=== PATIENT | male | born 1935 | race Caucasian/White ===

== ENCOUNTER 2016-11-24 09:21 | Inpatient (IN) | payer MEDICARE ==
[2016-11-24] MEDS ORDERED: Acetaminophen 325 MG TAB PO PRN (21:22)
[2016-11-24] MEDS ORDERED: Loperamide HCl 2 MG CAP PO PRN (21:43)
[2016-11-24] MEDS ORDERED: Bisacodyl 5 MG TAB PO PRN (21:43)
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
[2016-11-25] MEDS ORDERED: Levothyroxine Sodium 100 MCG TAB PO SCH ×2 (06:00→09:22)
[2016-11-25 06:17] LABS: Hemoglobin A1c 8.1 % (4.0-6.0)
[2016-11-25 06:19] LABS: ALT (SGPT) 40 U/L (8-55); AST (SGOT) 34 U/L (5-34); Alkaline Phosphatase 149 U/L (40-150); Anion Gap 14 mmol/L (10-20); BUN (Urea Nitrogen) 27 mg/dL (8.4-25.7); Bilirubin, Total 0.8 mg/dL (0.2-1.2); Calc. Creatinine Clearance 38 mL/min (70-130); Calcium 8.8 mg/dL (7.8-10.44); Carbon Dioxide 25 mmol/L (23-31); Cardiac Risk 4.3 (Less than 4.5); Chloride 96 mmol/L (98-107); Cholesterol 167 mg/dl (< 200 Desired); Estimated GFR-MDRD 33; Globulin 3.8 g/dL (2.4-3.5); Glucose 150 mg/dL (83-110); HDL Cholesterol 39 mg/dL (>60 Neg Risk); LDL Cholesterol, Calculated 65 mg/dL; Potassium 4.2 mmol/L (3.5-5.1); Protein, Total 6.8 g/dL (5.8-8.1); Sodium 131 mmol/L (136-145); Triglycerides 314 mg/dL (Less than 150)
[2016-11-25 06:30] LABS: #Basophils 0.1 thou/uL (0.0-0.2); #Eosinphils 0.2 thou/uL (0.0-0.7); #Lymphocytes 2.1 thou/uL (1.20-3.40); #Monocytes 0.7 thou/uL (0.11-0.59); #Neutrophils 6.1 thou/uL (1.40-6.50); %Eosinophils 2.5 % (0.0-10.0); %Lymphocytes 22.9 % (21.0-51.0); %Monocytes 7.3 % (0.0-10.0); %Neutrophils 66.4 % (42.0-75.0); Hemoglobin 10.6 g/dL (14.0-18.0); Mean Corpuscular HGB CONC 32.8 g/dL (32.0-36.0); Mean Corpuscular Hemoglobin 29.7 pg (27.0-31.0); Mean Corpuscular Volume 90.5 fl (80.0-94.0); Platelet Count 280 thou/uL (130-400); RBC Distribution Width 13.5 % (11.5-14.5); Red Blood Cell (RBC) Count 3.57 mill/uL (4.70-6.10); White Blood Cell (WBC) Count 9.2 thou/uL (4.8-10.8)
[2016-11-25] MEDS: Hydrochlorothiazide 25 MG TAB PO SCH ×2 (08:28→21:04)
[2016-11-25] MEDS: Bisoprolol Fumarate 5 MG TAB PO SCH (08:32)
[2016-11-25] MEDS: Apixaban 5 MG TAB PO SCH ×2 (08:32→21:01)
[2016-11-25] MEDS: Famotidine 20 MG TAB PO SCH ×2 (08:32→21:02)
[2016-11-25] MEDS: Gabapentin 100 MG CAP PO SCH ×3 (08:32→21:03)
[2016-11-25] MEDS: cloNIDine HCl 0.1 MG TAB PO SCH ×2 (08:32→21:01)
[2016-11-25 08:41] LABS: Clarity Slightly Cloudy (Clear); Leukocyte Negative (Negative); Nitrite Negative (Negative)
[2016-11-25 08:42] LABS: Bacteria/HPF 1+ HPF (None Seen); Bilirubin Negative (Negative); Blood, Urine Large (Negative); Glucose, Urine (Dipstick) Negative (Negative); Protein, Urine (Dipstick) 30 mg/dL (Neg-Trace); RBC/HPF 0-3 HPF (0-3); Squamous Epithelial 0-3 HPF (0-3); Urobilinogen 0.2 mg/dL (0.2-1.0); WBC/HPF 0-3 HPF (0-3)
[2016-11-25 08:44] LABS: Crystals/HPF 2+ AMORPH URATES HPF (Negative)
[2016-11-25] MEDS ORDERED: Sodium Chloride Irrig Solution 250 ML BOT ONE (09:00)
--- NOTE | 2016-11-25 12:18 | PRG ---
DATE OF SERVICE: 11/25/2016 SUBJECTIVE: Patient said he is alright this morning. He had just a little bit of a restless night. Nurses report no problems. He did find to have a saline lock in the right arm that they will vinicio ve, since he is not receiving any medications through the site. OBJECTIVE: GENERAL: The patient is alert, talkative, appears comfortable in no distress. VITAL SIGNS: His vital signs shows a temperature of 97.6, pulse 82, respirations 18, O2 sat 94% on 2 liters, blood pressure 168/68, earlier 134/68. His admission weight was 201. LUNGS: His lungs a re clear. HEART: Heart has a regular rate. ABDOMEN: His abdomen is soft, nontender. Patient has an ileostomy in the right lower quadrant that has moderate amount of brown liquid drainage. The incision dressing is clean. EXTREMITIES: No edema. LABORATORY AND X-RAY FINDINGS: His electrocardiogram showed a sinus rhythm with a rate of 77. Shani ent has evidence of a right bundle branch block. There were some TIA abnormalities in the inferior leads. His lab work shows an H\T\H of 10.6 and 32.3 with a white blood cell count of 9200 with 66% segs, 23% lymphocytes, and a platelet count of 280,000. Sodium is 131, potassium 4.2. His BUN is 2 7, creatinine 1.97 with a GFR of 33, which is stable. His FBS is 150, hemoglobin A1c is 8.1. His t otal bilirubin 0.8, AST 34, ALT 40, serum albumin is 3. Cholesterol 167, triglycerides 314, LDL 65, HDL 39, TSH is 7.4. ASSESSMENT: 1. Severe weakness and gait abnormality. Patient was independent with his ADLs prior to the hospit alization on 10/13/2016. The severe weakness is secondary to the prolonged hospitalization and surg [place] for the ischemic bowel disease with gangrenous changes requiring bowel resection and ileostomy a nd his wound complication and other comorbidities. 2. Diabetes type 2, insulin requiring. A. Complicated by peripheral neuropathy of the lower extremities. B. Hemoglobin A1c was 8.1 and FBS today was 150. 3. Atrial fibrillation, paroxysmal. A. Rate controlled. B. On anticoagulants with Eliquis. C. Complicated by embolus to the bowel. D. Presently in sinus rhythm as of 11/25/2016. 4. Ischemic bowel disease, a probable mesenteric emboli resulting gangrenous changes to small bowel and some to the large for which he underwent resection and a small bowel and ileostomy on 7. A. Complicated by opening of the wound that is healing by the secondary intention. B. Care for wet to dry dressing. 5. Episode of hypotension and cardiac arrest for which he was resuscitated and approximately is 5th postop day. 6. Anemia secondary to his recent surgeries. A. Status post transfusion. B. Hemoglobin 10.6 as of 11/25/2016. 7. History of recent cerebrovascular accident, suspect embolic. A. Leaving patient with a very mild right-sided weakness. 8. Hypothyroidism. A. TSH elevated to 7.4. 9. Dementia of recent onset. 10. Chronic kidney disease stage 3. A. Stable with GFR of 33. PLAN: I will continue present wound care with wet to dry dressings to the abdominal wound. Physica l therapy will be seen the patient today as well occupational therapy and speech therapy at some poi nt, we will see him. We will continue present medicines. We will increase his levothyroxine to 112 mcg daily and to follow up TSH in 8 weeks. Continue his Eliquis.
[2016-11-25] MEDS ORDERED: Dextrose 5% in Water 1,000 ML IV PRN (20:59)
[2016-11-25] MEDS ORDERED: Dextrose 50% Abboject 50 ML SYRINGE IVP PRN (20:59)
[2016-11-25] MEDS ORDERED: Non-Formulary Item 1 EACH (Insulin Glargine,Hum.Rec.Anlog [Lantus Solostar] 20 UNIT) SQ SCH (21:00)
[2016-11-25] MEDS: Levemir Flexpen 100 UNITS/ML PEN SC SCH (21:05)
[2016-11-26] MEDS: Levothyroxine Sodium 112 MCG TAB PO SCH (05:10)
[2016-11-26 05:49] LABS: #Basophils 0.1 thou/uL (0.0-0.2); #Eosinphils 0.3 thou/uL (0.0-0.7); #Lymphocytes 1.9 thou/uL (1.20-3.40); #Monocytes 0.6 thou/uL (0.11-0.59); %Basophils 0.9 % (0.0-1.0); %Eosinophils 3.3 % (0.0-10.0); %Lymphocytes 24.2 % (21.0-51.0); %Monocytes 7.5 % (0.0-10.0); %Neutrophils 64.1 % (42.0-75.0); Hemoglobin 10.6 g/dL (14.0-18.0); Mean Corpuscular HGB CONC 33.9 g/dL (32.0-36.0); Mean Corpuscular Hemoglobin 30.3 pg (27.0-31.0); Mean Corpuscular Volume 89.4 fl (80.0-94.0); Mean Platelet Volume 5.9 fL (7.4-10.4); Platelet Count 269 thou/uL (130-400); RBC Distribution Width 13.6 % (11.5-14.5); Red Blood Cell (RBC) Count 3.51 mill/uL (4.70-6.10); White Blood Cell (WBC) Count 7.8 thou/uL (4.8-10.8)
[2016-11-26 05:59] LABS: Anion Gap 15 mmol/L (10-20); BUN (Urea Nitrogen) 30 mg/dL (8.4-25.7); Calc. Creatinine Clearance 36 mL/min (70-130); Calcium 9.1 mg/dL (7.8-10.44); Carbon Dioxide 26 mmol/L (23-31); Chloride 94 mmol/L (98-107); Estimated GFR-MDRD 31; Glucose 98 mg/dL (83-110); Potassium 4.1 mmol/L (3.5-5.1); Sodium 131 mmol/L (136-145)
[2016-11-26] MEDS: Bisoprolol Fumarate 5 MG TAB PO SCH (08:25)
[2016-11-26] MEDS: Famotidine 20 MG TAB PO SCH ×2 (08:25→20:48)
[2016-11-26] MEDS: cloNIDine HCl 0.1 MG TAB PO SCH ×2 (08:25→20:48)
[2016-11-26] MEDS: Apixaban 5 MG TAB PO SCH ×2 (08:25→20:48)
[2016-11-26] MEDS: Gabapentin 100 MG CAP PO SCH ×3 (08:26→20:48)
--- NOTE | 2016-11-26 08:51 | PRG ---
DATE OF SERVICE: 11/26/2016 The patient said he was a little restless last night, but feels okay this morning. Nurses report no problem with patient. OBJECTIVE: The patient lying in bed, alert, appears comfortable, in no distress. His vital signs show a temperature of 98, pulse 54, respirations 20, O2 saturation 94% on room air, blood pressure w as 120/58. His lungs are clear. Heart, regular rate. Abdomen soft, nontender. Dressing is dry. Extremities; no edema. LABORATORY: H\T\H is 10.6 and 31.4. White cell count 7800 with 64% segs, 24% lymphocytes, and kirk telet count of 269. Sodium 131, potassium 4.1, BUN 30, creatinine 2, GFR 31, glucose 98. Yesterday 's GFR was 33, BUN 27. ASSESSMENT: 1. Severe weakness and gait abnormality. A. Prior to his initial hospitalization, he was independent of his ADLs. B. Severe weakness now secondary to the prolonged hospitalization following surgery for ischemic/ga ngrenous bowel secondary to mesenteric emboli requiring surgical resection and ileostomy. 2. Diabetes type 2, insulin requiring. A. Complicated by peripheral neuropathy of the lower extremities. B. Hemoglobin A1c 8.1. FBS today is 98. 3. Atrial fibrillation, paroxysmal. A. Rate controlled. B. On anticoagulants was Eliquis. C. Complicated by emboli to the mesentery with ischemic/gangrenous bowel. D. Presently in sinus rhythm. 4. Ischemic/gangrenous bowel secondary to a mesenteric emboli requiring resection of small and some large bowel and an ileostomy 10/13/2016. A. Complicated by open abdominal incision that is healing by secondary intention. B. Has still some necrotic tissue at the base of the wound. C. Being cared for and debrided with wet to dry dressing with gradual improvement. 5. Episode of hypotension and cardiac arrest for which he was resuscitated, approximately his 5th p ostop day 6. Anemia secondary to recent surgery. A. Status post transfusion. B. Hemoglobin 10.6 on 11/26/2016. 7. History of recent cerebrovascular accident, suspect embolic. A. Leaving patient with a mild right-sided weakness. 8. Hypothyroidism. A. TSH elevated to 7.4. B. Levothyroxine yesterday, increased. 9. Chronic kidney disease stage 3. A. GFR has dropped from 30 to 31 with some mild increase in BUN and creatinine. PLAN: 1. Continue present care. Continue wet to dry dressings. 2. Will stop the HCT which may be contributing to the decline in renal function. We will push oral fluids. Also, the ileostomy may contributes to the decline in his renal function. We will recheck his renal function tomorrow. His urinary output was recorded as only 325, stool output was 1400 to sky of 1725.
[2016-11-26] MEDS: Levemir Flexpen 100 UNITS/ML PEN SC SCH (20:48)
[2016-11-27] MEDS: Levothyroxine Sodium 112 MCG TAB PO SCH (05:13)
[2016-11-27 05:36] LABS: #Basophils 0.1 thou/uL (0.0-0.2); #Eosinphils 0.3 thou/uL (0.0-0.7); #Lymphocytes 2.5 thou/uL (1.20-3.40); #Monocytes 0.7 thou/uL (0.11-0.59); #Neutrophils 5.2 thou/uL (1.40-6.50); %Basophils 0.8 % (0.0-1.0); %Eosinophils 3.9 % (0.0-10.0); %Lymphocytes 28.7 % (21.0-51.0); %Monocytes 7.9 % (0.0-10.0); %Neutrophils 58.8 % (42.0-75.0); Hemoglobin 10.7 g/dL (14.0-18.0); Mean Corpuscular HGB CONC 34.9 g/dL (32.0-36.0); Mean Corpuscular Hemoglobin 31.6 pg (27.0-31.0); Mean Corpuscular Volume 90.5 fl (80.0-94.0); Mean Platelet Volume 5.9 fL (7.4-10.4); Platelet Count 265 thou/uL (130-400); RBC Distribution Width 13.8 % (11.5-14.5); White Blood Cell (WBC) Count 8.8 thou/uL (4.8-10.8)
[2016-11-27 05:38] LABS: Anion Gap 19 mmol/L (10-20); BUN (Urea Nitrogen) 37 mg/dL (8.4-25.7); Calc. Creatinine Clearance 26 mL/min (70-130); Calcium 9.3 mg/dL (7.8-10.44); Chloride 94 mmol/L (98-107); Estimated GFR-MDRD 22; Glucose 76 mg/dL (83-110); Sodium 134 mmol/L (136-145)
[2016-11-27 05:41] LABS: Carbon Dioxide 26 mmol/L (23-31)
[2016-11-27] MEDS: Apixaban 5 MG TAB PO SCH ×2 (08:07→21:35)
[2016-11-27] MEDS: cloNIDine HCl 0.1 MG TAB PO SCH ×2 (08:08→21:35)
[2016-11-27] MEDS: Famotidine 20 MG TAB PO SCH ×2 (08:08→21:35)
[2016-11-27] MEDS: Gabapentin 100 MG CAP PO SCH ×3 (08:08→21:35)
[2016-11-27] MEDS: Bisoprolol Fumarate 5 MG TAB PO SCH (08:08)
--- NOTE | 2016-11-27 08:58 | PRG ---
DATE OF SERVICE: 11/27/2016 SUBJECTIVE: The patient had no complaints. Last night the nurse called and said the patient's bloo d pressure has been running a little lower and they had held his hydralazine all day. Hydralazine w as discontinued. Blood pressure continued to be monitored. The patient's catheter was a little unc omfortable, but with repositioning he had no complaints. He has had much better output. OBJECTIVE: The patient is lying in bed. He appears very comfortable. His vital signs show a tempe rature 96.5, pulse 53, respirations 18, O2 sat 94%, blood pressure 111/54. His weight is 199, outpu t 1600 with the stools. Lungs are clear. Heart, regular rate. Abdomen; ileostomy, the patient has a small amount of yellow stools in the bag. Abdomen is soft and nontender. Extremities; there is no edema. Laboratory shows an H\T\H of 10.7 and 30.8, white cell count 8800 with 59% segs, 29% lymphocytes, an d platelet count of 265,000. Sodium 134, potassium 5, BUN 37, creatinine up to 2.8, GFR down to 22. FBS 76. ASSESSMENT: 1. Severe weakness and gait abnormality. A. Prior to his initial hospitalization on 10/13/2016 he was independent of all his ADLs. B. Severe weakness now secondary to his prolonged hospitalization following surgery on 10/13/2016. 2. Diabetes type 2, insulin requiring. A. Complicated by peripheral neuropathy of the lower extremities. B. Hemoglobin A1c is 8.1. FBS today is 76. 3. Atrial fibrillation, paroxysmal. A. Rate controlled. B. On chronic anticoagulation with Eliquis. C. Complicated by emboli to the mesentery with ischemic/gangrenous bowel. D. Presently in sinus rhythm. 4. Ischemic/gangrenous bowel secondary to mesenteric emboli requiring a resection of small and some large bowel and an ileostomy on 10/13/2016. A. complicated by an open abdominal incision that is slowly healing by secondary intention with stil l some necrotic tissue at the base of the wound. 5. Episode of hypotension and cardiac arrest for which he was resuscitated approximately 5th postop day. 6. Anemia secondary to recent surgery. A. Status post transfusion. B. Hemoglobin 10.7. 7. History of recent cerebrovascular accident, probably embolic. A. Leaving the patient with a mild right-sided weakness. 8. Hypothyroidism. A. TSH elevated at 7.4. B. Levothyroxine, recently increased. 9. Chronic kidney disease stage 3. A. GFR has dropped from 31 to 22. 10. Dehydration. A. Secondary to increase ileostomy output, inadequate oral intake. B. Manifest with prerenal azotemia with the GFR dropped to 22. PLAN: 1. Encourage the patient to eat. 2. We will place patient on IV fluids to help correct the dehydration and prerenal azotemia. 3. We will also try patient on Questran to slow some of the ileostomy output.
[2016-11-27] MEDS: Sodium Chloride 0.9% 1,000 ML IV SCH ×2 (08:59→23:03)
[2016-11-27] MEDS: Cholestyramine/Aspartame 4 gm Packet PO SCH ×2 (08:59→21:35)
[2016-11-27] MEDS: Levemir Flexpen 100 UNITS/ML PEN SC SCH (21:35)
[2016-11-28 05:32] LABS: #Basophils 0.1 thou/uL (0.0-0.2); #Eosinphils 0.2 thou/uL (0.0-0.7); #Lymphocytes 2.6 thou/uL (1.20-3.40); #Monocytes 0.7 thou/uL (0.11-0.59); #Neutrophils 5.5 thou/uL (1.40-6.50); %Eosinophils 2.8 % (0.0-10.0); %Lymphocytes 28.2 % (21.0-51.0); %Monocytes 8.3 % (0.0-10.0); %Neutrophils 59.8 % (42.0-75.0); Hemoglobin 10.9 g/dL (14.0-18.0); Mean Corpuscular HGB CONC 31.8 g/dL (32.0-36.0); Mean Corpuscular Hemoglobin 29.7 pg (27.0-31.0); Mean Corpuscular Volume 93.4 fl (80.0-94.0); Mean Platelet Volume 6.2 fL (7.4-10.4); Platelet Count 284 thou/uL (130-400); RBC Distribution Width 14.3 % (11.5-14.5); Red Blood Cell (RBC) Count 3.65 mill/uL (4.70-6.10); White Blood Cell (WBC) Count 8.9 thou/uL (4.8-10.8)
[2016-11-28 05:37] LABS: Anion Gap 18 mmol/L (10-20); BUN (Urea Nitrogen) 38 mg/dL (8.4-25.7); Calc. Creatinine Clearance 26 mL/min (70-130); Calcium 9.1 mg/dL (7.8-10.44); Carbon Dioxide 24 mmol/L (23-31); Chloride 95 mmol/L (98-107); Estimated GFR-MDRD 21; Glucose 85 mg/dL (83-110); Potassium 4.9 mmol/L (3.5-5.1); Sodium 132 mmol/L (136-145)
[2016-11-28] MEDS: Levothyroxine Sodium 112 MCG TAB PO SCH (06:24)
[2016-11-28] MEDS: Famotidine 20 MG TAB PO SCH ×2 (08:59→20:30)
[2016-11-28] MEDS: Bisoprolol Fumarate 5 MG TAB PO SCH (08:59)
[2016-11-28] MEDS: cloNIDine HCl 0.1 MG TAB PO SCH (09:00)
[2016-11-28] MEDS: Apixaban 5 MG TAB PO SCH ×2 (09:00→20:31)
[2016-11-28] MEDS: Gabapentin 100 MG CAP PO SCH ×3 (09:00→20:31)
[2016-11-28] MEDS: Cholestyramine/Aspartame 4 gm Packet PO SCH ×2 (09:05→20:31)
[2016-11-28] MEDS: Sodium Chloride 0.9% 1,000 ML IV SCH (13:50)
[2016-11-28] MEDS: Loperamide HCl 2 MG CAP PO SCH (20:30)
[2016-11-28] MEDS: Levemir Flexpen 100 UNITS/ML PEN SC SCH (20:32)
--- NOTE | 2016-11-28 23:02 | PRG ---
DATE OF SERVICE: 11/28/2016 SUBJECTIVE: The patient says he feels okay this morning. This morning he is up, walking a little b it in his room with the use of a walker with wheels and the physical therapist. OBJECTIVE: GENERAL: The patient appears comfortable, in no distress. VITAL SIGNS: Show a temperature of 97.2, pulse 59, respirations 18, O2 sat 96% on room air, blood p ressure 100/51. His output was 275, his ileostomy output 1650, weight is up to 203. LABORATORY DATA: H\T\H 10.9 and 34.5, white cell count 8900 with 60% segs, 28% lymphocytes, platele t count of 284,000. His glucose 132, up from 131, potassium 4.9, BUN 38, creatinine 2.89, GFR 21. FBS 85. ASSESSMENT: 1. Severe weakness and gait abnormality. A. Prior to his initial hospitalization on 10/13/2016, he was independent of his ADLs. B. Severe weakness now secondary to his prolonged hospital stay and the recent abdominal surgery on 10/13/2016. 2. Diabetes type 2, insulin requiring. A. Complicated by peripheral neuropathy of the lower extremity. B. Hemoglobin A1c 8.1. FBS 85 today. 3. Atrial fibrillation, paroxysmal. A. Rate controlled. B. On chronic anticoagulation with Eliquis. C. Complicated by emboli to the mesentery with ischemic/gangrenous bowel. D. Presently rate controlled. 4. Ischemic/gangrene bowel secondary to mesenteric emboli requiring resection of small and some lar ge bowel with ileostomy on 10/13/2016. A. Complicated by an open abdominal incision that is slowly healing by secondary intention with the use of wet-to-dry dressings. 5. Episode of hypotension and cardiac arrest from which he was resuscitated approximately 5th posto p day. 6. Anemia secondary to recent surgery. A. Status post transfusion. B. Stable. 7. History of recent cerebrovascular accident, embolic. A. Leaving the patient with mild right-sided weakness. 8. Hypothyroidism. A. TSH was elevated to 7.4. B. Levothyroxine, recently increased. 9. Chronic kidney disease stage 3. A. GFR dropped from 31 to 22 now, today 21. 10. Dehydration. A. Secondary to ileostomy to increased ileostomy output and inadequate oral intake. B. Manifest with prerenal azotemia, GFR of 21. PLAN: We will continue the IV fluids. Have started Questran in an effort to try to reduce the ileo stomy drainage. We will place the patient on Imodium twice today regularly. We will continue IV fl uids. We will also stop the clonidine blood pressure is low.
[2016-11-29] MEDS: Sodium Chloride 0.9% 1,000 ML IV SCH ×3 (02:35→20:38)
[2016-11-29 04:37] VITALS: BMI 26.4
[2016-11-29 05:11] LABS: #Basophils 0.1 thou/uL (0.0-0.2); #Eosinphils 0.2 thou/uL (0.0-0.7); #Lymphocytes 2.8 thou/uL (1.20-3.40); #Monocytes 0.6 thou/uL (0.11-0.59); #Neutrophils 5.4 thou/uL (1.40-6.50); %Basophils 0.6 % (0.0-1.0); %Eosinophils 2.6 % (0.0-10.0); %Lymphocytes 30.7 % (21.0-51.0); %Neutrophils 59.1 % (42.0-75.0); Hemoglobin 10.3 g/dL (14.0-18.0); Mean Corpuscular HGB CONC 32.7 g/dL (32.0-36.0); Mean Corpuscular Volume 91.6 fl (80.0-94.0); Mean Platelet Volume 5.8 fL (7.4-10.4); Platelet Count 282 thou/uL (130-400); Red Blood Cell (RBC) Count 3.45 mill/uL (4.70-6.10); White Blood Cell (WBC) Count 9.1 thou/uL (4.8-10.8)
[2016-11-29 05:22] LABS: Anion Gap 17 mmol/L (10-20); BUN (Urea Nitrogen) 40 mg/dL (8.4-25.7); Calc. Creatinine Clearance 25 mL/min (70-130); Calcium 9.1 mg/dL (7.8-10.44); Carbon Dioxide 26 mmol/L (23-31); Chloride 96 mmol/L (98-107); Estimated GFR-MDRD 22; Glucose 123 mg/dL (83-110); Potassium 4.9 mmol/L (3.5-5.1); Sodium 134 mmol/L (136-145)
[2016-11-29] MEDS: Levothyroxine Sodium 112 MCG TAB PO SCH (06:17)
[2016-11-29] MEDS: Bisoprolol Fumarate 5 MG TAB PO SCH (08:32)
[2016-11-29] MEDS: Loperamide HCl 2 MG CAP PO SCH ×4 (08:32→20:41)
[2016-11-29] MEDS: Gabapentin 100 MG CAP PO SCH ×3 (08:33→20:40)
[2016-11-29] MEDS: Famotidine 20 MG TAB PO SCH ×2 (08:33→20:39)
[2016-11-29] MEDS: Apixaban 5 MG TAB PO SCH ×2 (08:33→20:39)
[2016-11-29] MEDS: Cholestyramine/Aspartame 4 gm Packet PO SCH ×2 (10:49→21:51)
[2016-11-29] MEDS: HumaLOG 300 UNITS/3 ML VIAL SC PRN (11:55)
--- NOTE | 2016-11-29 12:04 | PRG ---
DATE OF SERVICE: 11/29/2016 SUBJECTIVE: The patient said he feels good. He says he has been eating good. Nurses report no pro blems with him other than he still having some large ileostomy drainage. OBJECTIVE: GENERAL: The patient is lying in bed, alert, talkative, and appears very comfortable. VITAL SIGNS: Shows a temperature 97.6, pulse 58, respirations 18, O2 sat 92% on room air, blood pre ssure 132/60. His output urinary 225, ileostomy output 1625. Weight is down to 189. LUNGS: Clear . HEART: Regular rate. ABDOMEN: Soft, nontender. The ileostomy has just watery brown drainage. The wound looks better. There is no surrounding redness. At the floor of the wound, there is some white necrotic tissue. T his could be lifted and peaked and just easily trim without getting into the area of the base. The side anguiano all are clean with excellent granulation tissue. Overall, this looks better. LABORATORY DATA: His labs shows a hemoglobin and hematocrit of 10.3 and 31.6, white cell count 9100 with 59% segs, 31% lymphocytes, and platelet count of 282. Sodium is up to 134, potassium is 4.9, BUN is 40, and creatinine is 2.83. GFR is up to 22 from 21, glucose 123. ASSESSMENT: 1. Severe weakness and gait abnormality. A. Prior to his initial hospitalization on 10/13/2016, he was independent of his activities of juan y livings. B. Severe weakness now secondary to his prolonged hospitalization and recent abdominal surgery on 0 10/13/2016, the small one under this is improving. 2. Diabetes type 2, insulin requiring. A. Complicated by peripheral neuropathy of the lower extremity. B. Hemoglobin A1c 8.1. FBS today 123. 3. Atrial fibrillation, paroxysmal. A. Rate controlled. B. On chronic anticoagulation with Eliquis. C. Complicated by emboli to the mesentery with ischemic/gangrenous bowel. 4. Ischemic gangrenous bowel secondary to mesenteric emboli, requiring resection of the small bowel and some large bowel and an ileostomy on 10/13/2016. A. Complicated by open abdominal incision that is slowly healing by secondary intention. The base still has some necrotic tissue, but overall area improving using wet-to-dry dressings. B. Complicated by excessive ileostomy output. 5. Episode of hypotension and cardiac arrest from which he was resuscitated approximately 5th posto p day. 6. Anemia secondary to recent surgery. A. Status post transfusion during the postoperative period. B. Stable. 7. Recent history of cerebrovascular accident, embolic. A. Leaving him with the mild right-sided weakness. 8. Hypothyroidism. A. TSH was elevated at 7.4. B. Recently increased levothyroxine. 9. Chronic kidney disease, stage 3. A. GFR dropped from 31 to 21, now 22 as of 11/29/2016 secondary to prerenal azotemia. 10. Dehydration. A. Secondary to excessive ileostomy drainage. B. Manifest with prerenal azotemia. PLAN: The patient's urinary output is still low and he is still having excessive ileostomy drainage . The renal function study have improved minimally, we will increase his IV fluids. We will contin ue the Questran and increase this to twice today and increase Imodium to 4 times a day. Recheck lab work tomorrow. Continue the wet-to-dry dressings. Continue PT.
[2016-11-29] MEDS: Levemir Flexpen 100 UNITS/ML PEN SC SCH (20:40)
[2016-11-30 05:24] LABS: #Basophils 0.1 thou/uL (0.0-0.2); #Eosinphils 0.2 thou/uL (0.0-0.7); #Lymphocytes 3.1 thou/uL (1.20-3.40); #Monocytes 0.8 thou/uL (0.11-0.59); #Neutrophils 4.8 thou/uL (1.40-6.50); %Eosinophils 2.6 % (0.0-10.0); %Lymphocytes 34.8 % (21.0-51.0); %Monocytes 8.5 % (0.0-10.0); %Neutrophils 53.1 % (42.0-75.0); Hemoglobin 10.2 g/dL (14.0-18.0); Mean Corpuscular HGB CONC 33.4 g/dL (32.0-36.0); Mean Corpuscular Hemoglobin 30.5 pg (27.0-31.0); Mean Corpuscular Volume 91.4 fl (80.0-94.0); Mean Platelet Volume 5.4 fL (7.4-10.4); Platelet Count 276 thou/uL (130-400); RBC Distribution Width 14.2 % (11.5-14.5); Red Blood Cell (RBC) Count 3.34 mill/uL (4.70-6.10)
[2016-11-30 05:26] LABS: Anion Gap 15 mmol/L (10-20); BUN (Urea Nitrogen) 36 mg/dL (8.4-25.7); Calc. Creatinine Clearance 31 mL/min (70-130); Calcium 8.7 mg/dL (7.8-10.44); Carbon Dioxide 27 mmol/L (23-31); Chloride 99 mmol/L (98-107); Estimated GFR-MDRD 26; Glucose 68 mg/dL (83-110); Potassium 4.7 mmol/L (3.5-5.1); Sodium 136 mmol/L (136-145)
[2016-11-30] MEDS: Sodium Chloride 0.9% 1,000 ML IV SCH ×2 (05:47→16:32)
[2016-11-30] MEDS: Levothyroxine Sodium 112 MCG TAB PO SCH (05:47)
[2016-11-30] MEDS: Famotidine 20 MG TAB PO SCH ×2 (09:19→21:09)
[2016-11-30] MEDS: Bisoprolol Fumarate 5 MG TAB PO SCH (09:19)
[2016-11-30] MEDS: Apixaban 5 MG TAB PO SCH ×2 (09:20→21:10)
[2016-11-30] MEDS: Gabapentin 100 MG CAP PO SCH ×3 (09:20→21:09)
[2016-11-30] MEDS: Loperamide HCl 2 MG CAP PO SCH ×4 (09:20→21:09)
[2016-11-30] MEDS: HumaLOG 300 UNITS/3 ML VIAL SC PRN ×2 (09:24→12:06)
[2016-11-30] MEDS: Cholestyramine/Aspartame 4 gm Packet PO SCH ×2 (09:26→21:09)
--- NOTE | 2016-11-30 13:28 | PRG ---
DATE OF SERVICE: 11/30/2016 SUBJECTIVE: The patient is feeling better. The patient has no complaints. Nurses said he is doing better and the wound looks better. He had a spillage of his ileostomy into his diaper and down his leg from which he has been cleaned up. OBJECTIVE: GENERAL: The patient is alert and appears very comfortable and in no distress. VITAL SIGNS: His temperature is 97, pulse 60, respirations 20, O2 sat 92% on room air, blood pressu re 133/65. His output was 550 mL of urine, had 2600 output through his ileostomy. His weight is 20 0 pounds, suspect the 189 was an error done yesterday. LUNGS: Clear. HEART: Regular rate. ABDOMEN: Soft, nontender. The ileostomy has kind of yellowish drainage. The wound in the nh dline looks much better; it is developing excellent granulation tissue. The base of the wound has l ess necrotic tissue. A small amount of debride has helped. Overall, the wound is improved. LABORATORY DATA: H and H is 10.2 and 30.5. White cell count 9000 with 53% segs, 35% lymphocytes, p latelet count of 276,000. Sodium 136, potassium 4.7, BUN 36, creatinine 2.37. Both of these were i mproved. His GFR has improved from a low of 21 down to 26, glucose 68, little later glucose is 175. ASSESSMENT: 1. Severe weakness and gait abnormality. A. Prior to his initial hospitalization on 10/13/2016, he was independent of his activities of ADLs. B. Severe weakness is now secondary to his prolonged hospitalization and recent abdominal surgery on 10/13/2016. C. Improving. 2. Diabetes type 2, insulin requiring. A. Complicated by peripheral neuropathy of the lower extremities. B. Hemoglobin A1c 8.1. FBS today 86 and repeated a couple of hours later was up to 175. 3. Atrial fibrillation, paroxysmal. A. Rate controlled on anticoagulation with Eliquis, complicated by emboli to the mesentery with isch emic gangrenous bowel. 4. 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 A. 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 B. Complicated by open abdominal incision that is slowly healing by secondary intention with the nec rotic base, much improved. C. Complicated by excessive ileostomy output. 5. Episodes of hypotension, cardiac arrest from which he was resuscitated approximately fifth posto p day and the next day anemia secondary to recent surgery, stable. A. Status post transfusion during postop period. B. Stable. 6. 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 A. Leaving patient with a mild right-sided weakness. 7. Hypothyroidism. A. TSH was elevated to 7.4. B. Recently increased levothyroxine in response to this elevation. 8. Chronic kidney disease stage 3. A. GFR dropped from 31-21 from excessive fluid loss. Now up to 26 as of 11/30/2016. 9. Dehydration. A. Secondary to excessive ileostomy drainage. B. Manifest with prerenal azotemia. Small one under this improved with GFR up to 26. 10. Dementia. PLAN: Overall, the patient looks better, still is having a large amount of ileostomy drainage. We will continue the IV fluids, continue the Imodium. I had an opportunity to visit with patient's bro ther and sister and lrmaej-ak-oas and nephew who were visiting here from [place] and was able to revi ew with them the care. They said his lives in [place] area and health is not good. They expect that eventually that she would not be able to take care of him back at home when that time comes an d that they expect that he probably will have to go to a penitentiary.
[2016-11-30] MEDS: Levemir Flexpen 100 UNITS/ML PEN SC SCH (21:10)
[2016-12-01] MEDS: Sodium Chloride 0.9% 1,000 ML IV SCH (04:31)
[2016-12-01] MEDS: Levothyroxine Sodium 112 MCG TAB PO SCH (05:40)
[2016-12-01 05:45] LABS: #Basophils 0.1 thou/uL (0.0-0.2); #Eosinphils 0.2 thou/uL (0.0-0.7); #Lymphocytes 3.2 thou/uL (1.20-3.40); #Monocytes 0.6 thou/uL (0.11-0.59); #Neutrophils 4.7 thou/uL (1.40-6.50); %Basophils 0.8 % (0.0-1.0); %Eosinophils 2.6 % (0.0-10.0); %Lymphocytes 36.4 % (21.0-51.0); %Monocytes 6.6 % (0.0-10.0); %Neutrophils 53.6 % (42.0-75.0); Hemoglobin 9.6 g/dL (14.0-18.0); Mean Corpuscular HGB CONC 34.4 g/dL (32.0-36.0); Mean Corpuscular Hemoglobin 31.2 pg (27.0-31.0); Mean Corpuscular Volume 90.8 fl (80.0-94.0); Mean Platelet Volume 6.2 fL (7.4-10.4); Platelet Count 256 thou/uL (130-400); Red Blood Cell (RBC) Count 3.07 mill/uL (4.70-6.10); White Blood Cell (WBC) Count 8.8 thou/uL (4.8-10.8)
[2016-12-01 06:00] LABS: Anion Gap 13 mmol/L (10-20); BUN (Urea Nitrogen) 30 mg/dL (8.4-25.7); Calc. Creatinine Clearance 37 mL/min (70-130); Calcium 8.5 mg/dL (7.8-10.44); Carbon Dioxide 26 mmol/L (23-31); Chloride 104 mmol/L (98-107); Estimated GFR-MDRD 32; Glucose 60 mg/dL (83-110); Potassium 4.5 mmol/L (3.5-5.1); Sodium 138 mmol/L (136-145)
[2016-12-01] MEDS: Bisoprolol Fumarate 5 MG TAB PO SCH (08:20)
[2016-12-01] MEDS: Famotidine 20 MG TAB PO SCH (08:20)
[2016-12-01] MEDS: Apixaban 5 MG TAB PO SCH (08:20)
[2016-12-01] MEDS: Gabapentin 100 MG CAP PO SCH (08:21)
[2016-12-01] MEDS: Loperamide HCl 2 MG CAP PO SCH ×2 (08:21→13:00)
[2016-12-01] MEDS: Cholestyramine/Aspartame 4 gm Packet PO SCH (08:24)
[2016-12-01] MEDS ORDERED: Sodium Chloride 0.9% 1,000 ML BAG ONE (09:00)
[2016-12-01] MEDS ORDERED: Sodium Chloride Irrig Solution 250 ML BOT ONE (09:00)
--- NOTE | 2016-12-01 10:56 | PRG ---
DATE OF SERVICE: 12/01/2016 SUBJECTIVE: Nurses said the patient has been doing fine. His output has been better urinary. He h as not had quite as much output from the colostomy. He has been confused this morning which is typi monty for him. Does not remember being here, thought that he came to the hospital last night. OBJECTIVE: The patient is lying in a Beryl chair. He is alert, talkative, and appears comfortable a nd appears in no acute distress. His vital signs show a temperature 98, pulse 53, blood pressure 12 0/59, respirations 16, O2 sat 92% on room air. The patient's urine output is up to 1280 and his ile ostomy drainage was only 420. His lungs are clear. Heart, regular rate. Weight was 198. The ileo stomy drainage has been less, wound dressing is clean. His labs shows a H\T\H is 9.6 and 27.9, white cell count 8800 with 54% segs, 36% lymphocytes, and pl atelet count of 256,000. Sodium 138, potassium 4.5, BUN is down to 30, creatinine down to 2. GFR i s up to 32, glucose 67. ASSESSMENT: 1. Severe weakness and gait abnormality. A. Prior to his initial hospitalization on 10/13/2016 the patient was independent with his ADLs. B. Severe weakness now secondary to the prolonged hospital stay and recent abdominal surgery C. Impro ving. 2. Diabetes type 2, insulin requiring. A. Complicated by peripheral neuropathy of the lower extremities. B. Hemoglobin A1c 8.1. FBS today 60. 3. Atrial fibrillation, paroxysmal. A. Rate controlled. On anticoagulation with Eliquis. 4. 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 A. Complicated by open abdominal incision that is slowly healing by secondary intention. B. Complicated by excessive ileostomy output. 1. Improved with decrease output and improvement in the prerenal azotemia as of 12/01/2016. 5. Episode of hypotension and cardiac arrest from which he was resuscitated approximately the p ostop day. 6. Anemia secondary to recent surgery. A. Hemoglobin 9.6. B. Required transfusion during the postop period. 7. Recent cerebrovascular accident, embolic. A. Leaving patient with a very mild right-sided weakness. 8. Hypothyroidism. A. TSH was elevated to 7.4. B. Recently increased levothyroxine response to this elevation. 9. Chronic kidney disease. A. GFR dropped from 31 to 21 from excessive fluid loss through the ileostomy, now GFR up to 30 as 0 12/01/2016. 10. Dehydration. A. Secondary to excessive ileostomy drainage. B. Improved as of 12/01/2016. C. Complicated by prerenal azotemia with GFR improving up to 30 as of 12/01/2016. 11. Dementia, stable. PLAN: Overall, the patient looks better. His wound is better. The ileostomy drainage is less. We will continue the IV fluids, continue monitoring his renal function. Continue physical therapy. W e will move the patient to [facility] for continued wound care. Continue IV fluids and continue physical therapy.
[2016-12-01 13:03] VITALS: BP 125/64; TEMP 97.6
== END 2016-12-01 13:02 | disposition swing bed (61) | DRG 948 ==
LOC: MADMS 19:39
PROVIDERS: ADMIT Family Medicine; ATTEND Family Medicine
DX: R53.1 Weakness (principal); E11.22 Type 2 diabetes mellitus with diabetic chronic kidney disease; I69.351 Hemiplegia and hemiparesis following cerebral infarction affecting right dominant side; E86.0 Dehydration; F03.90 Unspecified dementia, unspecified severity, without behavioral disturbance, psychotic disturbance, mood disturbance, and anxiety; E11.42 Type 2 diabetes mellitus with diabetic polyneuropathy; I48.0 Paroxysmal atrial fibrillation; Z86.74 Personal history of sudden cardiac arrest; I12.9 Hypertensive chronic kidney disease with stage 1 through stage 4 chronic kidney disease, or unspecified chronic kidney disease; T81.31XD Disruption of external operation (surgical) wound, not elsewhere classified, subsequent encounter; Z75.3 Unavailability and inaccessibility of health-care facilities; Z65.5 Exposure to disaster, war and other hostilities; Z43.2 Encounter for attention to ileostomy; Z90.49 Acquired absence of other specified parts of digestive tract; N18.3 Chronic kidney disease, stage 3 (moderate); R13.10 Dysphagia, unspecified; R26.9 Unspecified abnormalities of gait and mobility; I69.391 Dysphagia following cerebral infarction; D64.9 Anemia, unspecified; E03.9 Hypothyroidism, unspecified; Z79.4 Long term (current) use of insulin; Z79.01 Long term (current) use of anticoagulants
CPT/HCPCS: 36415; 36416; 80048; 80053; 80061; 81001; 83036; 84443; 85025; G8978-GP-CK; G8979-GP-CI; G8996-GN-CJ; G8997-GN-CJ; J1815; J7050

== ENCOUNTER 2016-12-01 10:48 | Inpatient (IN) | payer MEDICARE ==
[2016-12-01] MEDS ORDERED: Loperamide HCl 2 MG CAP PO PRN (11:06)
[2016-12-01] MEDS ORDERED: Dextrose 5% in Water 1,000 ML IV PRN (13:53)
[2016-12-01] MEDS ORDERED: Dextrose 50% Abboject 50 ML SYRINGE IVP PRN (13:55)
[2016-12-01] MEDS: Sodium Chloride 0.9% 1,000 ML IV SCH (14:00)
[2016-12-01] MEDS: Gabapentin 100 MG CAP PO SCH ×2 (15:51→22:06)
[2016-12-01] MEDS: Loperamide HCl 2 MG CAP PO SCH ×2 (17:16→22:06)
[2016-12-01] MEDS: Apixaban 5 MG TAB PO SCH (22:05)
[2016-12-01] MEDS: Famotidine 20 MG TAB PO SCH (22:06)
[2016-12-01] MEDS: Levemir Flexpen 100 UNITS/ML PEN SC SCH (22:08)
[2016-12-02] MEDS: Sodium Chloride 0.9% 1,000 ML IV SCH ×2 (02:28→11:41)
[2016-12-02] MEDS: Levothyroxine Sodium 100 MCG TAB PO SCH (05:06)
[2016-12-02 05:32] LABS: Anion Gap 12 mmol/L (10-20); BUN (Urea Nitrogen) 23 mg/dL (8.4-25.7); Calc. Creatinine Clearance 42 mL/min (70-130); Calcium 8.3 mg/dL (7.8-10.44); Carbon Dioxide 25 mmol/L (23-31); Chloride 106 mmol/L (98-107); Estimated GFR-MDRD 38; Glucose 115 mg/dL (83-110); Potassium 4.7 mmol/L (3.5-5.1); Sodium 138 mmol/L (136-145)
[2016-12-02] MEDS: Bisoprolol Fumarate 5 MG TAB PO SCH (08:13)
[2016-12-02] MEDS: Apixaban 5 MG TAB PO SCH ×2 (08:13→19:44)
[2016-12-02] MEDS: Famotidine 20 MG TAB PO SCH ×2 (08:13→19:44)
[2016-12-02] MEDS: Gabapentin 100 MG CAP PO SCH ×3 (08:13→19:44)
[2016-12-02] MEDS: Loperamide HCl 2 MG CAP PO SCH ×4 (08:14→19:44)
--- NOTE | 2016-12-02 11:58 | PRG ---
DATE OF SERVICE: 12/02/2016 SUBJECTIVE: Nurses states the patient is doing better. The patient said he had no complaints. Phy sical therapy said he is doing a little better. Once he is up on his feet, he can walk some short d istances with his walker and standby assistance. OBJECTIVE: GENERAL APPEARANCE: The patient is just sitting down his wheelchair after walking short distance in the hallway with physical therapy. VITAL SIGNS: Shows temperature 97.6, pulse 67, respirations 20, O2 saturation 97% on room air, bloo d pressure 160/67, earlier 126/62. His output urine has been 1350, stools 1100. Weight 192. LUNGS: Clear. HEART: Regular rate. LABORATORY DATA: Shows sodium 138, potassium 4.7, BUN 23, creatinine 1.7, GFR 38, glucose 115. ASSESSMENT: 1. Severe weakness and gait abnormality. A. Prior to initial hospitalization on 10/13/2016, patient was independent with his ADLs. B. Severe weakness now secondary to the prolonged hospital stay and recent abdominal surgery. C. Improving. 2. Diabetes type 2, insulin requiring. A. Complicated by peripheral neuropathy of the lower extremities. B. Hemoglobin A1c 8.1. FBS 115 today. 3. Atrial fibrillation, paroxysmal. A. Rate controlled on chronic anticoagulation with Eliquis. 4. 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 A. Complicated by an open abdominal incision that is slowly healing by secondary intention, use wet to dry dressings. B. Complicated by excessive ileostomy output with prerenal azotemia small one under this improved. 5. Episode of hypotension cardiac from which he was resuscitated approximately fifth postop day. 6. Anemia secondary to recent surgery. A. Hemoglobin 9.5. B. Required transfusion during postop period. 7. Recent cerebrovascular accident, embolic. A. The patient with a very mild right-sided weakness. 8. Hypothyroidism. A. TSH was elevated at 7.4. B. Recently increased levothyroxine in response to this elevation. 9. Chronic kidney disease. A. Glomerular filtration rate had dropped to a low of 21 and now with the hydration and it is up to 38 as of 12/02/2016. 10. Dehydration secondary to recent excessive ileostomy drainage. A. Improved as of 12/02/2016. B. Complicated by prerenal azotemia that improves the glomerular filtration rate now to 38 as of . 11. Dementia, stable. PLAN: Continue present care. We will reduce IV fluids 75 mL per hour. Recheck electrolytes tomorr ow.
[2016-12-02] MEDS: Levemir Flexpen 100 UNITS/ML PEN SC SCH (21:20)
[2016-12-03] MEDS: Sodium Chloride 0.9% 1,000 ML IV SCH ×2 (02:15→14:16)
[2016-12-03 05:09] LABS: #Basophils 0.1 thou/uL (0.0-0.2); #Eosinphils 0.3 thou/uL (0.0-0.7); #Lymphocytes 2.3 thou/uL (1.20-3.40); #Monocytes 0.5 thou/uL (0.11-0.59); #Neutrophils 3.7 thou/uL (1.40-6.50); %Basophils 0.8 % (0.0-1.0); %Lymphocytes 33.5 % (21.0-51.0); %Monocytes 7.6 % (0.0-10.0); %Neutrophils 54.1 % (42.0-75.0); Hemoglobin 9.6 g/dL (14.0-18.0); Mean Corpuscular HGB CONC 34.4 g/dL (32.0-36.0); Mean Corpuscular Hemoglobin 31.3 pg (27.0-31.0); Mean Corpuscular Volume 91.1 fl (80.0-94.0); Mean Platelet Volume 5.4 fL (7.4-10.4); Platelet Count 260 thou/uL (130-400); RBC Distribution Width 14.6 % (11.5-14.5); Red Blood Cell (RBC) Count 3.07 mill/uL (4.70-6.10); White Blood Cell (WBC) Count 6.9 thou/uL (4.8-10.8)
[2016-12-03] MEDS: Levothyroxine Sodium 100 MCG TAB PO SCH (05:12)
[2016-12-03 05:27] LABS: Anion Gap 14 mmol/L (10-20); BUN (Urea Nitrogen) 20 mg/dL (8.4-25.7); Calc. Creatinine Clearance 46 mL/min (70-130); Calcium 8.4 mg/dL (7.8-10.44); Carbon Dioxide 23 mmol/L (23-31); Chloride 108 mmol/L (98-107); Estimated GFR-MDRD 41; Glucose 111 mg/dL (83-110); Potassium 4.6 mmol/L (3.5-5.1); Sodium 140 mmol/L (136-145)
[2016-12-03] MEDS: Apixaban 5 MG TAB PO SCH ×2 (08:11→20:51)
[2016-12-03] MEDS: Loperamide HCl 2 MG CAP PO SCH ×4 (08:12→20:51)
[2016-12-03] MEDS: Bisoprolol Fumarate 5 MG TAB PO SCH (08:12)
[2016-12-03] MEDS: Famotidine 20 MG TAB PO SCH ×2 (08:12→20:51)
[2016-12-03] MEDS: Gabapentin 100 MG CAP PO SCH ×3 (08:12→20:51)
--- NOTE | 2016-12-03 10:20 | PRG ---
DATE OF SERVICE: 12/03/2016. SUBJECTIVE: The patient is doing a little better with his physical therapy. The nurses said he see ms a little bit more confused than what he has been. OBJECTIVE: GENERAL: The patient is sitting up in a geriatric chair. He is alert. He appears comfortable, in no distress. VITAL SIGNS: Shows a temperature 98.2, pulse 63, blood pressure 158/67, respirations 22, and O2 sat 96%. His weight is 201. His urinary output has been 2000 mL. The ileostomy drainage 1450. LUNGS: Clear. HEART: Regular rate. ABDOMEN: The abdominal wound is continuing to improve and has a good granulation base. LABORATORY DATA: Lab shows an H\T\H of 9.6 and 28, WBC count is 6900 with 54% segs, 34% lymphocytes , and platelet count of 268,000. Sodium 140, potassium 4.6, BUN down to 20, creatinine 1.62. GFR u p to 41. Glucose 111. ASSESSMENT: 1. Severe weakness, gait abnormality. A. Prior to his initial hospitalization on 10/13/2016, patient was independent with his activit ies of daily living. B. Severe weakness now secondary to the prolonged hospital stay and recent abdominal surgery. C. Improving. 2. Diabetes mellitus, insulin requiring. A. Complicated by peripheral neuropathy of the lower extremity. B. Hemoglobin A1c 8.1. Fasting blood sugar today is 111. 3. Atrial fibrillation, paroxysmal. A. Rate controlled, on chronic anticoagulation with Eliquis. 4. 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 A. Complicated by open abdominal incision that is slowly healing by secondary intention using we t to dry dressing. B. Complicated by excessive ileostomy output with prerenal azotemia. 1. Improved. 5. Episode of hypotension, cardiac arrest from which he was resuscitated approximately fifth postop day. 6. Anemia secondary to recent surgery. A. Hemoglobin stable at 9.6. B. Required transfusion during postop. 7. Recent cerebrovascular accident, embolic. A. Patient left with mild right-sided weakness. 8. Hypothyroidism. A. TSH was elevated at 7.4. B. Recently levothyroxine increased in response to this. 9. Chronic kidney disease. A. Complicated by prerenal azotemia secondary to the excessive ileostomy output with the GFR opping to 21. Now GFR up to 40 as of 12/03/2016. 10. Dehydration secondary to excessive ileostomy drainage. A. Improved. 11. Dementia. A. According to the family, he did not have this degree of confusion as such prior to his hospi talization suspect this is related to all the recent surgery and the cardiac arrest. PLAN: Overall, the patient is continuing to improve. We will continue to cut back on his IV fluids to 50 mL per hour. We will try continued physical therapy. Continue present wound care.
[2016-12-03] MEDS: Levemir Flexpen 100 UNITS/ML PEN SC SCH (20:51)
[2016-12-04] MEDS: Sodium Chloride 0.9% 1,000 ML IV SCH (02:30)
[2016-12-04 05:26] LABS: #Basophils 0.1 thou/uL (0.0-0.2); #Eosinphils 0.3 thou/uL (0.0-0.7); #Lymphocytes 3.3 thou/uL (1.20-3.40); #Monocytes 0.6 thou/uL (0.11-0.59); #Neutrophils 4.1 thou/uL (1.40-6.50); %Basophils 0.8 % (0.0-1.0); %Eosinophils 3.1 % (0.0-10.0); %Lymphocytes 39.9 % (21.0-51.0); %Monocytes 6.6 % (0.0-10.0); %Neutrophils 49.5 % (42.0-75.0); Mean Corpuscular HGB CONC 33.9 g/dL (32.0-36.0); Mean Corpuscular Volume 91.3 fl (80.0-94.0); Mean Platelet Volume 5.7 fL (7.4-10.4); Platelet Count 258 thou/uL (130-400); RBC Distribution Width 14.5 % (11.5-14.5); White Blood Cell (WBC) Count 8.3 thou/uL (4.8-10.8)
[2016-12-04] MEDS: Levothyroxine Sodium 100 MCG TAB PO SCH (05:39)
[2016-12-04 05:40] LABS: Anion Gap 14 mmol/L (10-20); BUN (Urea Nitrogen) 17 mg/dL (8.4-25.7); Calc. Creatinine Clearance 47 mL/min (70-130); Calcium 8.3 mg/dL (7.8-10.44); Carbon Dioxide 25 mmol/L (23-31); Chloride 108 mmol/L (98-107); Estimated GFR-MDRD 41; Potassium 4.1 mmol/L (3.5-5.1); Sodium 143 mmol/L (136-145)
[2016-12-04 05:57] LABS: Glucose 54 mg/dL (83-110)
[2016-12-04] MEDS: Bisoprolol Fumarate 5 MG TAB PO SCH (08:33)
[2016-12-04] MEDS: Apixaban 5 MG TAB PO SCH ×2 (08:34→20:25)
[2016-12-04] MEDS: Loperamide HCl 2 MG CAP PO SCH ×4 (08:34→20:25)
[2016-12-04] MEDS: Gabapentin 100 MG CAP PO SCH ×3 (08:34→20:25)
[2016-12-04] MEDS: Famotidine 20 MG TAB PO SCH ×2 (08:35→20:25)
[2016-12-04] MEDS: HumaLOG 300 UNITS/3 ML VIAL SC PRN (12:05)
[2016-12-04] MEDS: Levemir Flexpen 100 UNITS/ML PEN SC SCH (20:25)
[2016-12-05 05:23] LABS: #Eosinphils 0.3 thou/uL (0.0-0.7); #Monocytes 0.6 thou/uL (0.11-0.59); #Neutrophils 3.6 thou/uL (1.40-6.50); %Basophils 0.7 % (0.0-1.0); %Eosinophils 4.2 % (0.0-10.0); %Lymphocytes 30.6 % (21.0-51.0); %Monocytes 8.9 % (0.0-10.0); %Neutrophils 55.5 % (42.0-75.0); Hemoglobin 8.8 g/dL (14.0-18.0); Mean Corpuscular HGB CONC 33.2 g/dL (32.0-36.0); Mean Corpuscular Volume 93.3 fl (80.0-94.0); Mean Platelet Volume 5.7 fL (7.4-10.4); Platelet Count 243 thou/uL (130-400); RBC Distribution Width 14.8 % (11.5-14.5); Red Blood Cell (RBC) Count 2.85 mill/uL (4.70-6.10); White Blood Cell (WBC) Count 6.4 thou/uL (4.8-10.8)
[2016-12-05 05:33] LABS: Anion Gap 13 mmol/L (10-20); BUN (Urea Nitrogen) 17 mg/dL (8.4-25.7); Calc. Creatinine Clearance 43 mL/min (70-130); Calcium 8.3 mg/dL (7.8-10.44); Carbon Dioxide 25 mmol/L (23-31); Chloride 107 mmol/L (98-107); Estimated GFR-MDRD 37; Glucose 71 mg/dL (83-110); Potassium 4.2 mmol/L (3.5-5.1); Sodium 141 mmol/L (136-145)
[2016-12-05] MEDS: Levothyroxine Sodium 100 MCG TAB PO SCH (05:58)
[2016-12-05] MEDS: Sodium Chloride 0.9% 1,000 ML IV SCH (06:05)
[2016-12-05] MEDS: Bisoprolol Fumarate 5 MG TAB PO SCH (08:16)
[2016-12-05] MEDS: Apixaban 5 MG TAB PO SCH ×2 (08:17→20:41)
[2016-12-05] MEDS: Loperamide HCl 2 MG CAP PO SCH ×4 (08:17→20:41)
[2016-12-05] MEDS: Gabapentin 100 MG CAP PO SCH ×3 (08:17→20:41)
[2016-12-05] MEDS: Famotidine 20 MG TAB PO SCH ×2 (08:17→20:41)
--- NOTE | 2016-12-05 10:35 | PRG ---
DATE OF SERVICE: 12/05/2016 SUBJECTIVE: The patient has been doing a little better with his therapy, he says he complains of hi s bottom burning just a little bit. Nurses said he has been doing well, at times he gets just a lit tle irritable. Occupational therapy is working with him. OBJECTIVE: The patient was sitting up in a bedside Beryl chair, being assisted with eating by Occupa tional Therapy. Later he was placed in bed for further exam of his wound. His vital signs shows a temperature 97.9, pulse 58, respirations 18, O2 sat 94%, blood pressure 120/57. His ileostomy drain age was 1500, urinary output 670. Weight 205. Lungs are clear. Heart; regular rate. Abdomen is s oft, nontender. Ileostomy functioning well. The wound looks better. The base still has a little g ray/whitish necrotic tissue, but overall this is less. All the sidewalls have excellent granulation tissue. Overall the wound looks better. His labs shows an H\T\H of 8.8 and 26.6, white cell count 6400 with 56% segs, 31% lymphocytes, and platelet count of 243,000. Sodium 141, potassium 4.2, BUN 17, creatinine 1.78. GFR 37. FBS 88. ASSESSMENT: 1. Severe weakness and gait abnormality. A. Prior to his initial hospitalization on 10/13/2016, the patient was independent with his ADLs. B . Severe weakness now secondary to prolonged hospital stay and recent abdominal surgery. C. Improving. 2. Diabetes mellitus, insulin requiring. A. Complicated by peripheral neuropathy of the lower extremities. B. Hemoglobin A1c 8.1. C. Recently had a mild hypoglycemic episode. His Lantus has been reduced to 15 units and he is rec eiving a bedtime snack. 3. Atrial fibrillation, paroxysmal. A. Rate controlled. On chronic anticoagulation with Eliquis. 4. 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 A. Complicated by an open abdominal incision that is slowly improving and a little necrotic tissue a t the base of the wound is diminishing. B. Complicated by excessive ileostomy output with prerenal azotemia, small 100, this prerenal azotem ia is resolved, output is better. 5. Episode of hypotension and then cardiac arrest from which he was resuscitated approximately the 5th postop day 6. Anemia secondary to recent surgery. A. Hemoglobin of 8.8. B. Required transfusion during postop period. 7. 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 A. The patient left with very mild right-sided weakness. 8. Hypotension. A. TSH was elevated at 7.4. B. Recently levothyroxine increased in response to this. 9. Chronic kidney disease. A. Complicated by prerenal azotemia, secondary to excessive ileostomy output. B. GFR had dropped to a low of 21 and now it was 40 on 12/03/2016, now 38 on 12/05/2016. 10. Dehydration secondary to excessive ileostomy drainage, resolved. 11. Dementia. A. According to family did not have this degree of confusion prior to his hospitalization. B. Etiology probably secondary to the cardiac arrest. PLAN: Overall the patient has improved. The wound is gradually improving. We will apply antisepti c to his buttock, examined this area, there is no redness or open wounds in the perianal area. The buttocks are all clean and the previous small decubitus over the right buttock is completely healed. We will see if patient can do without the IV and maintain an adequate urinary output. Continue ph ysical therapy.
[2016-12-05] MEDS: HumaLOG 300 UNITS/3 ML VIAL SC PRN (17:43)
[2016-12-05] MEDS: Levemir Flexpen 100 UNITS/ML PEN SC SCH (20:41)
[2016-12-06] MEDS: Levothyroxine Sodium 100 MCG TAB PO SCH (05:55)
[2016-12-06] MEDS: Bisoprolol Fumarate 5 MG TAB PO SCH (08:41)
[2016-12-06] MEDS: Gabapentin 100 MG CAP PO SCH ×3 (08:41→20:17)
[2016-12-06] MEDS: Famotidine 20 MG TAB PO SCH ×2 (08:42→20:15)
[2016-12-06] MEDS: Apixaban 5 MG TAB PO SCH ×2 (08:42→20:15)
[2016-12-06] MEDS: Loperamide HCl 2 MG CAP PO SCH ×4 (08:43→20:16)
[2016-12-06] MEDS: HumaLOG 300 UNITS/3 ML VIAL SC PRN ×2 (11:55→17:07)
[2016-12-06] MEDS ORDERED: HumaLOG 300 UNITS/3 ML VIAL SC SCH (20:15)
[2016-12-06] MEDS: Levemir Flexpen 100 UNITS/ML PEN SC SCH (20:15)
[2016-12-07] MEDS: Levothyroxine Sodium 100 MCG TAB PO SCH (05:35)
[2016-12-07] MEDS: Bisoprolol Fumarate 5 MG TAB PO SCH (08:33)
[2016-12-07] MEDS: Gabapentin 100 MG CAP PO SCH ×3 (08:34→21:21)
[2016-12-07] MEDS: Famotidine 20 MG TAB PO SCH ×2 (08:34→21:20)
[2016-12-07] MEDS: Loperamide HCl 2 MG CAP PO SCH ×4 (08:34→21:21)
[2016-12-07] MEDS: HumaLOG 300 UNITS/3 ML VIAL SC PRN ×2 (08:35→11:29)
[2016-12-07] MEDS: Apixaban 5 MG TAB PO SCH ×2 (08:35→21:21)
--- NOTE | 2016-12-07 19:08 | PRG ---
DATE OF SERVICE: 12/07/2016. SUBJECTIVE: The patient says he is doing okay this morning. Last evening, his blood sugar went up to 438. Several days previously, his Lantus had been reduced from 20 to 15 units due to some beater dumper of mild hypoglycemic episodes and the patient was placed on bedtime snack. This is the firs t time he had such a high reading at bedtime. Patient was given 4 units of Humalog and his Lantus/L evemir was increased to 20 units, also was given a bedtime snack. At 2:00 a.m., sugar was done and was 283, and this morning, sugar was down to 182. OBJECTIVE: GENERAL: The patient is sitting up in bed, trying to feed himself, has spilled his hot chocolate an d is having trouble eating. Nurses will assist him with his eating. VITAL SIGNS: Show a temperature of 98.3, pulse 56, respirations 18, O2 sat 92% on room air, blood p ressure 125/60. LUNGS: Clear. HEART: Regular rate. ABDOMEN: Soft, nontender. Ileostomy working well. His dressing over his wound is dry. EXTREMITIES: No edema. His urinary output was 600, ileostomy drainage 1450, weight 208. ASSESSMENT: 1. Severe weakness and gait abnormality. A. Prior to his initial hospitalization on 10/13/2016, the patient was independent with his ADLs . B. Severe weakness now secondary to prolonged hospital stay and recent abdominal surgery. C. Improving as of 12/07/2016. 2. Diabetes mellitus, insulin requiring. A. Complicated by peripheral neuropathy of the lower extremities. B. Hemoglobin A1c 8.1. C. Recently had a mild hypoglycemic episode. His Lantus has been reduced to 15 units and he is receiving a bedtime snack. D. Bedtime h.s. on the evening of 12/06/2016 was up to over 400 for which he received Humalog and Levemir increased back to 20 units, and fasting blood sugar on the morning of 12/07 was 182. 3. Atrial fibrillation, paroxysmal. A. Rate controlled. On chronic anticoagulation with Eliquis. 4. 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 A. Complicated by an open abdominal incision that is slowly improving and a little necrotic tis pauline at the base of the wound is diminishing. B. Complicated by excessive ileostomy output that is little better, but still had 1400 output i n the last 24 hours as of 12/07/2016. 5. Episode of hypotension and then cardiac arrest from which he was resuscitated approximately the 5th postop day 6. Anemia secondary to recent surgery. A. Hemoglobin of 8.8. B. Required transfusion during postop period. 7. 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 A. The patient left with very mild right-sided weakness. 8. Hypothyroidism. A. TSH was elevated at 7.4. B. Recently levothyroxine increased in response to this. 9. Chronic kidney disease. A. Complicated by prerenal azotemia, secondary to excessive ileostomy output. B. GFR had dropped to a low of 21 and now it was 40 on 12/03/2016, now 38 on 12/05/2016. 10. Dehydration secondary to excessive ileostomy drainage, resolved. 11. Dementia. A. According to family did not have this degree of confusion prior to his hospitalization. B. Etiology probably secondary to the cardiac arrest. PLAN: The patient continues to improve, his strength is a little better. His wound is gradually im proving. He needs continued skilled care stay for wound care and monitoring of his output between t he ileostomy in the urine. Patient did have repeat CBC and basic metabolic panel to check on his re nal function in the morning.
[2016-12-07] MEDS: Levemir Flexpen 100 UNITS/ML PEN SC SCH (21:21)
[2016-12-08] MEDS: Levothyroxine Sodium 100 MCG TAB PO SCH (05:33)
[2016-12-08 05:42] LABS: Anion Gap 12 mmol/L (10-20); BUN (Urea Nitrogen) 17 mg/dL (8.4-25.7); Calc. Creatinine Clearance 46 mL/min (70-130); Calcium 8.5 mg/dL (7.8-10.44); Carbon Dioxide 28 mmol/L (23-31); Chloride 104 mmol/L (98-107); Estimated GFR-MDRD 40; Glucose 123 mg/dL (83-110); Potassium 4.1 mmol/L (3.5-5.1); Sodium 140 mmol/L (136-145)
[2016-12-08 05:46] LABS: #Basophils 0.1 thou/uL (0.0-0.2); #Eosinphils 0.3 thou/uL (0.0-0.7); #Lymphocytes 2.4 thou/uL (1.20-3.40); #Monocytes 0.6 thou/uL (0.11-0.59); #Neutrophils 3.9 thou/uL (1.40-6.50); %Basophils 0.9 % (0.0-1.0); %Eosinophils 3.9 % (0.0-10.0); %Lymphocytes 32.5 % (21.0-51.0); %Monocytes 8.2 % (0.0-10.0); %Neutrophils 54.6 % (42.0-75.0); Hemoglobin 9.3 g/dL (14.0-18.0); Mean Corpuscular HGB CONC 32.4 g/dL (32.0-36.0); Mean Corpuscular Hemoglobin 30.7 pg (27.0-31.0); Mean Corpuscular Volume 94.8 fl (80.0-94.0); Mean Platelet Volume 5.8 fL (7.4-10.4); Platelet Count 301 thou/uL (130-400); RBC Distribution Width 15.7 % (11.5-14.5); Red Blood Cell (RBC) Count 3.04 mill/uL (4.70-6.10); White Blood Cell (WBC) Count 7.2 thou/uL (4.8-10.8)
[2016-12-08] MEDS: Bisoprolol Fumarate 5 MG TAB PO SCH (08:25)
[2016-12-08] MEDS: Apixaban 5 MG TAB PO SCH ×2 (08:25→21:47)
[2016-12-08] MEDS: Gabapentin 100 MG CAP PO SCH ×3 (08:27→21:45)
[2016-12-08] MEDS: Loperamide HCl 2 MG CAP PO SCH ×4 (08:27→21:45)
[2016-12-08] MEDS: Famotidine 20 MG TAB PO SCH ×2 (08:27→21:46)
--- NOTE | 2016-12-08 09:45 | PRG ---
DATE OF SERVICE: 12/08/2016 SUBJECTIVE: The patient said he is feeling good. He had a good night. He has been eating well. OBJECTIVE: The patient lying in bed. He is alert, appears comfortable and in no distress. His vit al signs show a temperature of 98.4, pulse 76, respirations 18, O2 sat 95% on room air, blood pressu re 136/63. His urinary output was 300 mL, stools were 750, weight 205. Lab shows an H\T\H is 9.3 and 28.8, WBC count 7200 with 55% segs, 33% lymphocytes, and platelet coun t of 301,000. Sodium 140, potassium 4.1, BUN 17, creatinine 1.67. GFR is 40, glucose 123. ASSESSMENT: 1. Severe weakness and gait abnormality. A. Prior to his initial hospitalization on 10/13/2016, the patient was independent with his ADLs . B. Severe weakness now secondary to prolonged hospital stay and recent abdominal surgery. C. Continued gradually improved as of 12/08/2016. 2. Diabetes mellitus, insulin requiring. A. Complicated by peripheral neuropathy of the lower extremities. B. Hemoglobin A1c 8.1. C. The patient has had no more hypoglycemic episodes, nor hyperglycemic episodes and presently on Lantus 20 units daily with before meals sliding scale as of 12/08/2016. 3. Atrial fibrillation, paroxysmal. A. Rate controlled. On chronic anticoagulation with Eliquis. 4. 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 A. Complicated by an open abdominal incision that is slowly improving and a little necrotic tis pauline at the base of the wound is diminishing. B. Excessive ileostomy output is a little improved as of 12/08/2016. 5. Episode of hypotension and then cardiac arrest from which he was resuscitated approximately the 5th postop day 6. Anemia secondary to recent surgery. A. Hemoglobin is 9.3 as of 12/08/2016. B. Required transfusion during postop period. 7. 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 A. The patient left with very mild right-sided weakness. 8. Hypothyroidism. A. TSH was elevated at 7.4. B. Recently levothyroxine increased in response to this. 9. Chronic kidney disease. A. Complicated by prerenal azotemia, secondary to excessive ileostomy output. B. GFR dropped to a low of 21, but has gradually improved to 40 as of 12/08/2016. 10. Dehydration secondary to excessive ileostomy drainage, resolved. 11. Dementia. A. According to family did not have this degree of confusion prior to his hospitalization. B. Etiology probably secondary to the cardiac arrest. PLAN: Overall, the patient is continuing to progress. His renal function looks better. He is stil l having some low urinary output and some high ileostomy drainage. We will continue to try to encou rage his liquids to offset this loss. Continue his physical therapy. Continue to monitor renal fun ction.
[2016-12-08] MEDS: HumaLOG 300 UNITS/3 ML VIAL SC PRN (11:54)
[2016-12-08] MEDS: Levemir Flexpen 100 UNITS/ML PEN SC SCH (21:48)
[2016-12-09] MEDS: Levothyroxine Sodium 100 MCG TAB PO SCH (06:23)
[2016-12-09] MEDS: Apixaban 5 MG TAB PO SCH ×2 (08:16→21:16)
[2016-12-09] MEDS: Gabapentin 100 MG CAP PO SCH ×3 (08:16→21:16)
[2016-12-09] MEDS: Loperamide HCl 2 MG CAP PO SCH ×4 (08:17→21:16)
[2016-12-09] MEDS: Famotidine 20 MG TAB PO SCH ×2 (08:18→21:16)
[2016-12-09] MEDS: Bisoprolol Fumarate 5 MG TAB PO SCH (08:18)
[2016-12-09] MEDS: Levemir Flexpen 100 UNITS/ML PEN SC SCH (21:17)
[2016-12-10] MEDS: Levothyroxine Sodium 100 MCG TAB PO SCH (05:50)
[2016-12-10 06:34] LABS: #Basophils 0.1 thou/uL (0.0-0.2); #Eosinphils 0.3 thou/uL (0.0-0.7); #Monocytes 0.7 thou/uL (0.11-0.59); %Basophils 1.1 % (0.0-1.0); %Eosinophils 3.2 % (0.0-10.0); %Lymphocytes 37.5 % (21.0-51.0); %Monocytes 8.4 % (0.0-10.0); %Neutrophils 49.9 % (42.0-75.0); Anion Gap 15 mmol/L (10-20); BUN (Urea Nitrogen) 25 mg/dL (8.4-25.7); Calc. Creatinine Clearance 35 mL/min (70-130); Calcium 8.8 mg/dL (7.8-10.44); Carbon Dioxide 28 mmol/L (23-31); Chloride 101 mmol/L (98-107); Estimated GFR-MDRD 29; Hemoglobin 9.4 g/dL (14.0-18.0); Mean Corpuscular HGB CONC 32.6 g/dL (32.0-36.0); Mean Corpuscular Hemoglobin 30.6 pg (27.0-31.0); Mean Platelet Volume 6.1 fL (7.4-10.4); Platelet Count 298 thou/uL (130-400); Potassium 4.5 mmol/L (3.5-5.1); RBC Distribution Width 15.9 % (11.5-14.5); Red Blood Cell (RBC) Count 3.07 mill/uL (4.70-6.10); Sodium 139 mmol/L (136-145)
[2016-12-10 06:47] LABS: Glucose 47 mg/dL (83-110)
[2016-12-10] MEDS: Apixaban 5 MG TAB PO SCH ×2 (08:31→20:41)
[2016-12-10] MEDS: Famotidine 20 MG TAB PO SCH ×2 (08:32→20:40)
[2016-12-10] MEDS: Gabapentin 100 MG CAP PO SCH ×3 (08:32→20:40)
[2016-12-10] MEDS: Bisoprolol Fumarate 5 MG TAB PO SCH (08:32)
[2016-12-10] MEDS: Loperamide HCl 2 MG CAP PO SCH ×4 (08:32→20:41)
[2016-12-10] MEDS ORDERED: Sodium Chloride 0.9% 1,000 ML BAG ONE (10:45)
[2016-12-10] MEDS ORDERED: Sodium Chloride Irrig Solution 250 ML BOT ONE (10:45)
[2016-12-10] MEDS: HumaLOG 300 UNITS/3 ML VIAL SC PRN (18:09)
[2016-12-10] MEDS ORDERED: Levemir Flexpen 100 UNITS/ML PEN SC SCH (21:00)
[2016-12-11] MEDS: Levothyroxine Sodium 100 MCG TAB PO SCH (05:24)
[2016-12-11 05:36] LABS: Anion Gap 15 mmol/L (10-20); BUN (Urea Nitrogen) 27 mg/dL (8.4-25.7); Calc. Creatinine Clearance 35 mL/min (70-130); Calcium 8.8 mg/dL (7.8-10.44); Carbon Dioxide 29 mmol/L (23-31); Chloride 99 mmol/L (98-107); Estimated GFR-MDRD 29; Potassium 4.7 mmol/L (3.5-5.1); Sodium 138 mmol/L (136-145)
[2016-12-11 05:43] LABS: Glucose 54 mg/dL (83-110)
[2016-12-11] MEDS: Apixaban 5 MG TAB PO SCH ×2 (09:23→21:21)
[2016-12-11] MEDS: Bisoprolol Fumarate 5 MG TAB PO SCH (09:24)
[2016-12-11] MEDS: Famotidine 20 MG TAB PO SCH (09:24)
[2016-12-11] MEDS: Loperamide HCl 2 MG CAP PO SCH ×4 (09:24→21:20)
[2016-12-11] MEDS: Gabapentin 100 MG CAP PO SCH ×3 (09:25→21:20)
[2016-12-11] MEDS: Levemir Flexpen 100 UNITS/ML PEN SC SCH (21:21)
--- NOTE | 2016-12-12 02:25 | PRG ---
DATE OF SERVICE: 12/11/2016 SUBJECTIVE: Patient had no complaints. Nurses said he is eating, drinking fluids well. Early this morning, his blood sugar dropped to 54. He was given some oral food and this recovered. Recently that is the day before he had had another hypoglycemic episode. He is getting a bedtime snack. He does not receive a sliding scale at bedtime and his Levemir was dropped to 15 units. OBJECTIVE: GENERAL: Patient is lying in bed, alert, talkative, smiling and appears very comfortable and in no distress. VITAL SIGNS: His temperature is 98.1, pulse 78, respirations 21, O2 sat 96% on room air, blood pres sure 119/56. His output has been 600 mL of urine, 1400 of ileostomy drainage and weight is 203. ABDOMEN: Soft. LABORATORY DATA: His sodium 138, potassium 4.7, BUN 27, creatinine 2.16. GFR 29, glucose 54. Subs equent glucose readings after the feedings were upto 100 and before breakfast 119, before lunch 125. ASSESSMENT: 1. Severe weakness and gait abnormality. A. Prior to his initial hospitalization on 10/13/2016, the patient was independent with his ADLs . B. Severe weakness now secondary to prolonged hospital stay and recent abdominal surgery. C. Continued gradual improvement. 2. Diabetes mellitus, insulin requiring. A. Complicated by peripheral neuropathy of the lower extremities. B. Hemoglobin A1c 8.1. C. Patient had hypoglycemic episodes, mild, on the morning of 12/10/2016 and 12/11/2016. 3. Atrial fibrillation, paroxysmal. A. Rate controlled. On chronic anticoagulation with Eliquis. 4. 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 A. Complicated by an open abdominal incision that is slowly improving and a little necrotic tis pauline at the base of the wound is diminishing. B. Excessive ileostomy output stable as of 12/11/2016. 5. Episode of hypotension and then cardiac arrest from which he was resuscitated approximately the 5th postop day 6. Anemia secondary to recent surgery. A. Hemoglobin is 9.3 as of 12/08/2016. B. Required transfusion during postop period. 7. 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 A. The patient left with very mild right-sided weakness. 8. Hypothyroidism. A. TSH was elevated at 7.4. B. Recently levothyroxine increased in response to this. 9. Chronic kidney disease. A. Complicated by prerenal azotemia, secondary to excessive ileostomy output. B. GFR is stable at 29 on 12/10/2016. 10. Dehydration secondary to excessive ileostomy drainage, resolved. 11. Dementia. A. According to family did not have this degree of confusion prior to his hospitalization. B. Etiology probably secondary to the cardiac arrest. PLAN: Patient looks better. His wound looks better. His strength is improving. His urinary outpu t is improved, it was up to 600 over the last 24 hours. He still has up to 1400 mL, output through the ileostomy. We will continue to encourage him to drink and eat to see if his renal function will improve without having to initiate an IV. If the excessive drainage persist, may try low dose oral morphine to slow the motility and output nor the ileostomy. We will continue the wound care. Rech mynor renal function in the morning. Ileostomy working well. The patient has yellow-brown liquidy st ools in the bag. His wound site anguiano are very clean. The wound overall a little smaller. The bas e of the wound still has widest slough at present, but this is a little bit less. Overall, the woun d looks better. We will reduce the patient's Levemir to 10 units. We will discontinue the Pepcid i n the event, if this is creating any trouble with the increased drainage through the ileostomy. Con tinue physical therapy.
[2016-12-12 05:28] LABS: #Basophils 0.1 thou/uL (0.0-0.2); #Eosinphils 0.2 thou/uL (0.0-0.7); #Lymphocytes 2.9 thou/uL (1.20-3.40); #Monocytes 0.6 thou/uL (0.11-0.59); #Neutrophils 3.8 thou/uL (1.40-6.50); %Eosinophils 3.3 % (0.0-10.0); %Lymphocytes 38.2 % (21.0-51.0); %Monocytes 7.6 % (0.0-10.0); %Neutrophils 49.9 % (42.0-75.0); Hemoglobin 9.8 g/dL (14.0-18.0); Mean Corpuscular HGB CONC 32.5 g/dL (32.0-36.0); Mean Corpuscular Hemoglobin 30.6 pg (27.0-31.0); Mean Corpuscular Volume 94.4 fl (80.0-94.0); Mean Platelet Volume 5.9 fL (7.4-10.4); Platelet Count 327 thou/uL (130-400); RBC Distribution Width 16.2 % (11.5-14.5); Red Blood Cell (RBC) Count 3.18 mill/uL (4.70-6.10); White Blood Cell (WBC) Count 7.5 thou/uL (4.8-10.8)
[2016-12-12 05:36] LABS: Anion Gap 16 mmol/L (10-20); BUN (Urea Nitrogen) 27 mg/dL (8.4-25.7); Calc. Creatinine Clearance 37 mL/min (70-130); Calcium 8.9 mg/dL (7.8-10.44); Carbon Dioxide 30 mmol/L (23-31); Chloride 98 mmol/L (98-107); Estimated GFR-MDRD 31; Glucose 106 mg/dL (83-110); Potassium 4.9 mmol/L (3.5-5.1); Sodium 139 mmol/L (136-145)
[2016-12-12] MEDS: Levothyroxine Sodium 100 MCG TAB PO SCH (05:56)
[2016-12-12] MEDS: Apixaban 5 MG TAB PO SCH ×2 (09:10→20:15)
[2016-12-12] MEDS: Bisoprolol Fumarate 5 MG TAB PO SCH (09:10)
[2016-12-12] MEDS: Gabapentin 100 MG CAP PO SCH ×3 (09:11→20:17)
[2016-12-12] MEDS: Loperamide HCl 2 MG CAP PO SCH ×4 (09:11→20:15)
[2016-12-12] MEDS: Levemir Flexpen 100 UNITS/ML PEN SC SCH (20:17)
[2016-12-13] MEDS: Levothyroxine Sodium 100 MCG TAB PO SCH (05:20)
[2016-12-13 05:22] LABS: Anion Gap 15 mmol/L (10-20); BUN (Urea Nitrogen) 29 mg/dL (8.4-25.7); Calc. Creatinine Clearance 36 mL/min (70-130); Calcium 8.8 mg/dL (7.8-10.44); Carbon Dioxide 30 mmol/L (23-31); Chloride 96 mmol/L (98-107); Estimated GFR-MDRD 30; Glucose 118 mg/dL (83-110); Potassium 4.6 mmol/L (3.5-5.1); Sodium 136 mmol/L (136-145)
[2016-12-13] MEDS: HumaLOG 300 UNITS/3 ML VIAL SC PRN (07:59)
[2016-12-13] MEDS: Apixaban 5 MG TAB PO SCH ×2 (08:02→21:12)
[2016-12-13] MEDS: Bisoprolol Fumarate 5 MG TAB PO SCH (08:09)
[2016-12-13] MEDS: Gabapentin 100 MG CAP PO SCH ×3 (08:09→21:13)
[2016-12-13] MEDS: Loperamide HCl 2 MG CAP PO SCH ×4 (08:09→21:12)
[2016-12-13] MEDS: Levemir Flexpen 100 UNITS/ML PEN SC SCH (21:13)
[2016-12-14] MEDS: Levothyroxine Sodium 100 MCG TAB PO SCH (05:14)
[2016-12-14 05:23] LABS: Anion Gap 19 mmol/L (10-20); BUN (Urea Nitrogen) 29 mg/dL (8.4-25.7); Calc. Creatinine Clearance 36 mL/min (70-130); Calcium 9.1 mg/dL (7.8-10.44); Carbon Dioxide 29 mmol/L (23-31); Chloride 93 mmol/L (98-107); Estimated GFR-MDRD 30; Glucose 146 mg/dL (83-110); Potassium 4.6 mmol/L (3.5-5.1); Sodium 136 mmol/L (136-145)
[2016-12-14] MEDS: Bisoprolol Fumarate 5 MG TAB PO SCH (09:00)
[2016-12-14] MEDS: Gabapentin 100 MG CAP PO SCH ×3 (09:00→21:01)
[2016-12-14] MEDS: Loperamide HCl 2 MG CAP PO SCH ×4 (09:01→21:01)
[2016-12-14] MEDS: Apixaban 5 MG TAB PO SCH ×2 (09:01→21:00)
--- NOTE | 2016-12-14 14:21 | PRG ---
DATE OF SERVICE: 12/14/2016 SUBJECTIVE: The patient had no complaints. The patient is doing well. He is participating well wi therapy and is walking a little further with assistance in the use of his rolling walker. OBJECTIVE: GENERAL: The patient is sitting up in a bedside chair. He is alert, talkative, and appears in no d istress. VITAL SIGNS: His temperature is 97.9, pulse 64, respirations 18, O2 sat 94% on room air, blood pres sure 117/58. His output that was on the urine yesterday was 1100, the day before yesterday was 650, output the day before from the ileostomy was 750, yesterday 1550. His weight is 204. Over the las t few days, he has ranged from 203-206. LUNGS: Clear. HEART: Regular rate. EXTREMITIES: No edema. is gradually improving. LABORATORY DATA: Sodium 136, potassium 4.6, BUN 29, creatinine 2.15, GFR 30. On 12/12/2016, GFR wa s 31, GFR has been reasonably stable. His FBS this morning was 146. He has not had any more hypogl ycemic episodes since Levemir was reduced. ASSESSMENT: 1. Severe weakness and gait abnormality. A. Prior to his initial hospitalization on 10/13/2016, the patient was independent with his ADLs . B. Severe weakness now secondary to prolonged hospital stay and recent abdominal surgery. C. Continued gradual improvement. 2. Diabetes mellitus, insulin requiring. A. Complicated by peripheral neuropathy of the lower extremities. B. Hemoglobin A1c 8.1. C. Controlled with no more hypoglycemic episodes as of 12/14/2016 3. Atrial fibrillation, paroxysmal. A. Rate controlled. On chronic anticoagulation with Eliquis. 4. 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 A. Complicated by an open abdominal incision that is slowly improving and a little necrotic tis pauline at the base of the wound is diminishing. B. Excessive ileostomy output stable as of 12/11/2016. 5. Episode of hypotension and then cardiac arrest from which he was resuscitated approximately the 5th postop day 6. Anemia secondary to recent surgery. A. Hemoglobin of 9.8 as of 12/13/2016. B. Required transfusion during postop period. 7. 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 A. The patient left with very mild right-sided weakness. 8. Hypothyroidism. A. TSH was elevated at 7.4. B. Recently levothyroxine increased in response to this. 9. Chronic kidney disease. A. Complicated by prerenal azotemia, secondary to excessive ileostomy output. B. GFR stable at 30. On 12/14/2016, previously GFR 29 on 12/10/2016. 10. Dehydration secondary to excessive ileostomy drainage, resolved. 11. Dementia. A. According to family did not have this degree of confusion prior to his hospitalization. B. Etiology probably secondary to the cardiac arrest. PLAN: Overall, the patient is making gradual improvement. We will continue present care. Continue physical therapy.
[2016-12-14] MEDS: Levemir Flexpen 100 UNITS/ML PEN SC SCH (21:02)
[2016-12-15] MEDS: Levothyroxine Sodium 100 MCG TAB PO SCH (05:13)
[2016-12-15] MEDS: Bisoprolol Fumarate 5 MG TAB PO SCH (08:40)
[2016-12-15] MEDS: Loperamide HCl 2 MG CAP PO SCH ×4 (08:41→20:26)
[2016-12-15] MEDS: Gabapentin 100 MG CAP PO SCH ×3 (08:41→20:26)
[2016-12-15] MEDS: Apixaban 5 MG TAB PO SCH ×2 (08:41→20:27)
[2016-12-15] MEDS: HumaLOG 300 UNITS/3 ML VIAL SC PRN (16:25)
[2016-12-15] MEDS: Levemir Flexpen 100 UNITS/ML PEN SC SCH (21:31)
[2016-12-16] MEDS: Levothyroxine Sodium 100 MCG TAB PO SCH (05:16)
[2016-12-16 05:35] LABS: Anion Gap 16 mmol/L (10-20); BUN (Urea Nitrogen) 31 mg/dL (8.4-25.7); Calc. Creatinine Clearance 36 mL/min (70-130); Calcium 8.8 mg/dL (7.8-10.44); Carbon Dioxide 32 mmol/L (23-31); Chloride 93 mmol/L (98-107); Estimated GFR-MDRD 31; Glucose 122 mg/dL (83-110); Potassium 4.2 mmol/L (3.5-5.1); Sodium 137 mmol/L (136-145)
[2016-12-16 05:54] LABS: Hemoglobin A1c 6.5 % (4.0-6.0)
[2016-12-16] MEDS: Gabapentin 100 MG CAP PO SCH ×3 (08:52→20:48)
[2016-12-16] MEDS: Bisoprolol Fumarate 5 MG TAB PO SCH (08:52)
[2016-12-16] MEDS: Apixaban 5 MG TAB PO SCH ×2 (08:52→20:48)
[2016-12-16] MEDS: Loperamide HCl 2 MG CAP PO SCH ×4 (08:54→20:48)
[2016-12-16] MEDS: HumaLOG 300 UNITS/3 ML VIAL SC PRN (13:08)
[2016-12-16] MEDS: Levemir Flexpen 100 UNITS/ML PEN SC SCH (20:51)
[2016-12-17] MEDS: Levothyroxine Sodium 100 MCG TAB PO SCH (04:55)
[2016-12-17 05:52] LABS: Platelet Count 311 thou/uL (130-400)
[2016-12-17] MEDS: Loperamide HCl 2 MG CAP PO SCH ×4 (08:12→20:21)
[2016-12-17] MEDS: Apixaban 5 MG TAB PO SCH ×2 (08:12→20:21)
[2016-12-17] MEDS: Bisoprolol Fumarate 5 MG TAB PO SCH (08:12)
[2016-12-17] MEDS: Gabapentin 100 MG CAP PO SCH ×3 (08:12→20:21)
--- NOTE | 2016-12-17 09:14 | PRG ---
DATE OF SERVICE: 12/17/2016 SUBJECTIVE: The patient said he is feeling good. He slept good last night. The patient said has b een eating good. The patient was walking yesterday 60 feet twice with physical therapy. He is requ iring some minimal help transferring. He is using a walker with wheels and standby assistance with the walking. Nurses report the wound on the abdomen is gradually improving. OBJECTIVE: The patient is lying in bed, alert, appears in no distress. Temp 98.3, pulse 63, respir ations 18, O2 sat 96% on room air, blood pressure 118/55. His weight is 202. Stool output 500, uri nary output of 375. Lungs are clear. Heart, regular rate. Dressing over the wound is clean. There is no surrounding redness. Extremities, no edema. Lab shows an H\T\H of 10 and 30.8. Hemoglobin A1c done yesterday was 6.5, FBS yesterday morning was 129. TSH is 4.5. ASSESSMENT: 1. Severe weakness and gait abnormality. A. Prior to his initial hospitalization on 10/13/2016, the patient was independent with his ADLs . B. Severe weakness now secondary to prolonged hospital stay and recent abdominal surgery. C. Slow gradual improvement as of 12/17/2016. 2. Diabetes mellitus, insulin requiring. A. Complicated by peripheral neuropathy of the lower extremities. B. Hemoglobin A1c down to 6.5 as of 12/16/2016. C. Controlled with no more hypoglycemic episodes as of 12/17/2016 3. Atrial fibrillation, paroxysmal. A. Rate controlled. On chronic anticoagulation with Eliquis. 4. 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 A. Complicated by an open abdominal incision that is slowly improving as of 12/17/2016. B. Excessive ileostomy output, improved as of 12/17/2016. 5. Episode of hypotension and then cardiac arrest from which he was resuscitated approximately the 5th postop day 6. Anemia secondary to recent surgery. A. Hemoglobin up to 10 as of 12/17/2016. B. Required transfusion during postop period. 7. 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 A. The patient left with very mild right-sided weakness. 8. Hypothyroidism. A. TSH is down to 4.5. B. Controlled. 9. Chronic kidney disease. A. Complicated by prerenal azotemia, secondary to excessive ileostomy output. B. GFR stable at 30. On 12/14/2016, previously GFR 29 on 12/10/2016. 10. Dehydration secondary to excessive ileostomy drainage, resolved. 11. Dementia. A. According to family did not have this degree of confusion prior to his hospitalization. B. Etiology probably secondary to the cardiac arrest. PLAN: Continue present care. Continue present wound care. Will try discontinuing the Martin cathet er.
[2016-12-17] MEDS: HumaLOG 300 UNITS/3 ML VIAL SC PRN (09:19)
[2016-12-17] MEDS: Levemir Flexpen 100 UNITS/ML PEN SC SCH (20:22)
[2016-12-18] MEDS: Levothyroxine Sodium 100 MCG TAB PO SCH (05:51)
[2016-12-18] MEDS: Loperamide HCl 2 MG CAP PO SCH ×4 (08:11→20:31)
[2016-12-18] MEDS: Apixaban 5 MG TAB PO SCH ×2 (08:11→20:30)
[2016-12-18] MEDS: Gabapentin 100 MG CAP PO SCH ×3 (08:12→20:30)
[2016-12-18] MEDS: Bisoprolol Fumarate 5 MG TAB PO SCH (08:12)
[2016-12-18] MEDS: Levemir Flexpen 100 UNITS/ML PEN SC SCH (20:31)
[2016-12-19] MEDS: Levothyroxine Sodium 100 MCG TAB PO SCH (05:19)
[2016-12-19 06:14] VITALS: BMI 27.6
[2016-12-19 06:16] LABS: #Basophils 0.1 thou/uL (0.0-0.2); #Eosinphils 0.1 thou/uL (0.0-0.7); #Lymphocytes 3.3 thou/uL (1.20-3.40); #Monocytes 0.7 thou/uL (0.11-0.59); %Basophils 1.4 % (0.0-1.0); %Eosinophils 1.7 % (0.0-10.0); %Lymphocytes 39.6 % (21.0-51.0); %Monocytes 8.2 % (0.0-10.0); %Neutrophils 49.1 % (42.0-75.0); Hemoglobin 10.4 g/dL (14.0-18.0); Mean Corpuscular HGB CONC 33.4 g/dL (32.0-36.0); Mean Corpuscular Hemoglobin 31.1 pg (27.0-31.0); Mean Corpuscular Volume 93.3 fl (80.0-94.0); Mean Platelet Volume 6.6 fL (7.4-10.4); Platelet Count 301 thou/uL (130-400); Red Blood Cell (RBC) Count 3.35 mill/uL (4.70-6.10); White Blood Cell (WBC) Count 8.2 thou/uL (4.8-10.8)
[2016-12-19 06:36] LABS: Anion Gap 15 mmol/L (10-20); BUN (Urea Nitrogen) 38 mg/dL (8.4-25.7); Calc. Creatinine Clearance 30 mL/min (70-130); Carbon Dioxide 33 mmol/L (23-31); Chloride 91 mmol/L (98-107); Estimated GFR-MDRD 25; Glucose 85 mg/dL (83-110); Potassium 4.1 mmol/L (3.5-5.1); Sodium 135 mmol/L (136-145)
[2016-12-19] MEDS: Apixaban 5 MG TAB PO SCH ×2 (08:44→20:24)
[2016-12-19] MEDS: Gabapentin 100 MG CAP PO SCH ×3 (08:44→20:25)
[2016-12-19] MEDS: Bisoprolol Fumarate 5 MG TAB PO SCH (08:44)
[2016-12-19] MEDS: Loperamide HCl 2 MG CAP PO SCH ×4 (08:45→20:25)
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
[2016-12-19] MEDS: Levemir Flexpen 100 UNITS/ML PEN SC SCH (20:25)
[2016-12-20] MEDS: Levothyroxine Sodium 100 MCG TAB PO SCH (06:22)
[2016-12-20] MEDS ORDERED: Sodium Chloride Irrig Solution 250 ML BOT ONE (07:00)
[2016-12-20 08:31] VITALS: BP 119/59; TEMP 97.6
[2016-12-20] MEDS: Bisoprolol Fumarate 5 MG TAB PO SCH (08:33)
[2016-12-20] MEDS: Gabapentin 100 MG CAP PO SCH ×2 (08:34→14:35)
[2016-12-20] MEDS: Loperamide HCl 2 MG CAP PO SCH ×2 (08:34→12:40)
[2016-12-20] MEDS: Apixaban 5 MG TAB PO SCH (08:34)
== END 2016-12-20 15:00 | DRG 949 ==
LOC: MADMS 12:57
PROVIDERS: ADMIT Family Medicine; ATTEND Family Medicine
DX: Z48.815 Encounter for surgical aftercare following surgery on the digestive system (principal); I69.351 Hemiplegia and hemiparesis following cerebral infarction affecting right dominant side; N17.9 Acute kidney failure, unspecified; E11.42 Type 2 diabetes mellitus with diabetic polyneuropathy; E11.22 Type 2 diabetes mellitus with diabetic chronic kidney disease; E86.0 Dehydration; E11.649 Type 2 diabetes mellitus with hypoglycemia without coma; I48.0 Paroxysmal atrial fibrillation; F03.90 Unspecified dementia, unspecified severity, without behavioral disturbance, psychotic disturbance, mood disturbance, and anxiety; I12.9 Hypertensive chronic kidney disease with stage 1 through stage 4 chronic kidney disease, or unspecified chronic kidney disease; N18.3 Chronic kidney disease, stage 3 (moderate); Z48.01 Encounter for change or removal of surgical wound dressing; Z43.2 Encounter for attention to ileostomy; Z90.49 Acquired absence of other specified parts of digestive tract; Z75.3 Unavailability and inaccessibility of health-care facilities; Z65.5 Exposure to disaster, war and other hostilities; R26.9 Unspecified abnormalities of gait and mobility; Z79.4 Long term (current) use of insulin; Z86.74 Personal history of sudden cardiac arrest; E03.9 Hypothyroidism, unspecified; Z79.01 Long term (current) use of anticoagulants; I48.2 Chronic atrial fibrillation
CPT/HCPCS: 36415; 36416; 80048; 83036; 84443; 85014; 85018; 85025; 85049; A4216; G8978-GP-CK; G8979-GP-CI; J1815; J7050